=== PATIENT | male | born 1960 | race Caucasian/White ===

== ENCOUNTER 2019-09-14 15:22 | Observation (INO) | payer OTHER ==
[2019-09-13] MEDS: KCL 20MEQ/.9 SOD CHL 1,000 ML IV ONE (23:30)
[~2019-09-14] VITALS: Ht 172.7 cm; Wt 78.9 kg
[~2019-09-14 15:22] MED LIST: CIPROFLOXACIN 500 MG; LEVOTHYROXINE25 MCG; [UNRECOGNIZED DRUG - OTHER]; tadalafil
--- NOTE | 2019-09-14 16:25 | Emergency Department Note ---
History of Present Illnes History of Present Illness Chief Complaint: Abdominal Complaints History of Present Illness This is a 58 year old male, with a history of hypothyroidism, who presents with a one-week history of left lower abdominal pressure and pain, that he felt might be secondary to diverticulitis. He's had a similar pain intermittently over the past 4-5 months, but he has never been formally diagnosed with diverticulitis. Patient states that he changed to a soft diet over the weekend, and this pain mostly resolved. 4 days ago, patient began to have some pain in the left low back/flank. It is sharp, stabbing, and intermittent. The Pain has become constant over the last 24-48 hours. Patient states that he has had a history of a kidney stones approximately 25 years ago, and he recalls a similar pain at that time. He denies any hematuria or dysuria, but he has had frequency and urgency. He has taken ibuprofen for the pain with mild relief, but not resolution of the pain. Patient states that he had a normal bowel movement earlier today. He has had no diarrhea, hematochezia, or melena. He denies any fever, chills, nausea, vomiting, or upper respiratory symptoms. He denies any known exposure to anyone with Covid 19 infection. - Pt states that he has had a colonoscopy @ 3-4 years ago, where several polyps were removed, but diverticulosis was not seen. Historian: Patient Arrival Mode: Car Additional Treatment [employer]: none Specification Manager Required: No Onset (how long ago): week(s) (1) Location: LLQ and left flank Quality: sharp, stabbing Radiation: Reports back, Reports abdomen Severity: severe Onset quality: gradual Duration (how long): week(s) (1) Timing of current episode: constant Progression: worsening Chronicity: recurrent Context: Denies recent illness, Denies recent travel Relieving factors: none Exacerbating factors: none Associated symptoms: Reports denies other symptoms; Denies chest pain, Denies cough, Denies fever/chills, Denies nausea/vomiting, Denies shortness of breath, Denies weakness Treatments prior to arrival: NSAID Risk factors: Previous history of kidney stones; Past Medical/Family History Physician Review I have reviewed the patient's past medical and family history. Any updates have been documented here. Past Medical History Recent Fever: No Clinical Suspicion of Infectio: No New/Unexplained Change in Ment: No Past Medical History: Hypothyroidism, Kidney Stones (x 1 episode, and passed without intervention; ) Past Surgical History: Cholecysctectomy, Hernia Repair Social History Smoking Cessation: Never Smoker Alcohol Use: None Any Illegal Drug Use: No TB Exposure/Symptoms: No Physically hurt or threatened: No Family History Family history of heart diseas: No Other Any Pre-Existing Lines (PICC,: No Is patient up to date on immun: Yes Review of Systems Review of Systems Constitutional: Denies chills, Denies fever EENTM: Reports no symptoms Cardiovascular: Denies chest pain, Denies palpitations Respiratory: Reports no symptoms Gastrointestinal: Reports abdominal pain; Denies constipation, Denies diarrhea, Denies nausea, Denies vomiting Genitourinary: Reports frequency, Reports other (urgency); Denies hematuria Musculoskeletal: Reports back pain; Denies muscle pain, Denies muscle stiffness Integumentary: Denies change in color, Denies rash Neurological: Reports no symptoms Psychological: Reports no symptoms Endocrine: Reports no symptoms Review of other systems: All other systems negative Physical Exam Related Data Allergies: Coded Allergies: azithromycin (Verified Allergy, Intermediate, hives/rash, 09/14/19) Vital signs reviewed: Yes Physical Exam CONSTITUTIONAL Constitutional: Present well-developed, Present well-nourished; Absent distressed, Absent ill appearing HENT HENT: Present normocephalic, Present atraumatic, Present oropharynx clear/moist, Present nose normal; Absent nasal discharge, Absent nasal congestion, Absent rhinorrhea HENT L/R: Present left ext ear normal, Present right ext ear normal EYES Eyes: Reports PERRL, Reports conjunctivae normal NECK Neck: Present ROM normal, Present supple PULMONARY Pulmonary: Present effort normal, Present breath sounds normal; Absent respiratory distress, Absent chest tenderness CARDIOVASCULAR Cardiovascular: Present regular rhythm, Present heart sounds normal, Present capillary refill normal, Present normal rate GASTROINTESTINAL Abdominal: Present soft, Present bowel sounds normal, Present tender (mild supraprubic ttp; ), Present left CVA tenderness; Absent distension, Absent guarding, Absent rebound GENITOURINARY Genitourinary: Present exam deferred SKIN Skin: Present warm, Present dry; Absent rash MUSCULOSKELETAL Musculoskeletal: Absent ROM normal NEUROLOGICAL Neurological: Present alert, Present oriented x 3; Absent cranial nerve deficit PSYCHOLOGICAL Psychological: Present mood/affect normal Results Laboratory Laboratory CMP - nl except for Alk phos = 133, ALT = 54; CBC - normal; . UA - ket = 15 mg/dl, blo - large, pro = 30 mg/dl; Lab results reviewed: Yes Imaging Imaging results reviewed: Yes Diagnostics Tests Diagnostic test(s) reviewed: Yes Assessment & Plan Medical Decision Making MDM - Pt to be admitted for managment of obstructive left kidney stone, pain control, IVF and IV antibiotics for diverticulitis. - Pt to f/u with GI for further evaluation of pancreatic cystic mass. Reassessment Reassessment time: 17:35 Reassessment - Pain was initially relieved by Toradol, but is now returning. He is requestin g something else for pain. His will come and pick him up. Will try Morphine 4 mg IV and Zofran 4mg IV. - Continue to await CT scan results. 18:30- Discussed results of CT scan with patient, at length. He does have an obstructing left distal kidney stone, probably 5 mm, with mild proximal hydronephrosis. There is also some fat stranding around the sigmoid colon which could possibly be diverticulitis, which is the symptoms he was initially describing. Also of note, a cystic mass in the pancreatic tail is also noted, and specific follow-up instructions were outlined. Encouraged patient to follow up with his GI doctor, who performs colonoscopy, to make a plan for further evaluation of the pancreatic mass. Patient was provided with a CD, containing the CT images, as well as the report. Patient states he will follow-up, once he has recovered from this acute illness. His current pain does not seem to be all related to the cystic mass in the tail of the pancreas. 18:55 - Case discussed with Urology, Dr. Carrera, he stated that he would be happy to consult on patient following admission to the hospital. Patient be admitted for pain control, IV fluids, and IV antibiotics, for possible diverticulitis. Patient is agreeable to admission, and a bed is available [facility]. 19:00 - case discussed with Dr. Cheng, who is construction job cost estimator for admissions. He is agreeable to admitting patient, for further management of an obstructive left kidney stone, left hydronephrosis and sigmoid diverticulitis. Await bed assignment. 20:45 - EMS is here to transport patient to [facility]. He remains medically stable for transport. - Assessment & Plan Final Impression: (1) Left nephrolithiasis (2) Hydronephrosis (3) Diverticulitis of sigmoid colon (4) Cystic mass of pancreas (5) Hypothyroidism Depart Disposition: ADMITTED (to [facility]) Home Meds Reported Medications Levothyroxine Sodium (LEVOTHYROXINE SODIUM) 25 Mcg Tablet, 1-2XD 02/09/13 [ciprofloxin 500 mg] No Conflict Check, 1-2XD 02/09/13 [tadalafil] No Conflict Check 02/09/13 SARAH DUEÑAS MD Sep 14, 2019 16:25
[2019-09-14] MEDS ORDERED: KETOROLAC TROMETHAMINE 30 MG/ML VIAL IV STA (16:26)
[2019-09-14] MEDS ORDERED: KETOROLAC TROMETHAMINE 30 MG/ML VIAL ONE (16:37)
[2019-09-14] MEDS ORDERED: SODIUM CHLORIDE 0.9% 1000ML 1,000 ML ONE (16:37)
[2019-09-14] MEDS ORDERED: SODIUM CHLORIDE 0.9% 1000ML 1,000 ML IV SCH ×2 (16:45→23:15)
[2019-09-14] MEDS ORDERED: ONDANSETRON HCL INJ 2MG/ML 2ML 2 MG/ML VIAL IV STA (17:32)
[2019-09-14] MEDS ORDERED: MORPHINE SULFATE INJ 4 MG/ML INJ 1ML IV STA (17:32)
[2019-09-14] MEDS ORDERED: MORPHINE SULFATE INJ 4 MG/ML INJ 1ML ONE (17:40)
--- NOTE | 2019-09-14 18:33 | Diagnostic Imaging Report ---
ADDENDUM #1 There is diverticulosis and short segment mucosal thickening of the sigmoid colon with peripheral fat stranding compatible with diverticulitis. An underlying mass cannot be excluded. Consider referral to gastrointestinal medicine to determine need for colonoscopy after acute disease. Signed by: Osman Boykin MD on 09/14/2019 6:34 PM ADDENDUM #2 Obstructive left ureteral stone measures 5 mm. Nonobstructive stone in the upper pole of the right kidney measures 3 mm. Signed by: Osman Boykin MD on 09/14/2019 6:40 PM ORIGINAL REPORT EXAM: CT Abdomen WITHOUT contrast INDICATION: Left lower quadrant and left flank pain. COMPARISON: None. TECHNIQUE: Abdomen was scanned utilizing a multidetector helical scanner from the lung base to the iliac crest without administration of IV contrast. Absence of intravenous contrast decreases sensitivity for detection of focal lesions and vascular pathology. Coronal and sagittal reformations were obtained. Routine protocol was performed. IV CONTRAST: None ORAL CONTRAST: Water COMPLICATIONS: None RADIATION DOSE: Total DLP: 746.21 mGy*cm Estimated effective dose: (DLP x 0.015 x size factor) mSv CTDIvol has been reviewed. It is below the limits set by the Radiation Protocol Committee (RPC). Dose modulation, iterative reconstruction, and/or weight based adjustment of the mA/kV was utilized to reduce the radiation dose to as low as reasonably achievable. FINDINGS: LINES and TUBES: None. LOWER THORAX: Unremarkable HEPATOBILIARY: No focal hepatic lesions. No biliary ductal dilation. GALLBLADDER: Status post cholecystectomy. SPLEEN: No splenomegaly. PANCREAS: There is a 2.7 x 2.7 cm cyst (11 HU) the tail of the pancreas. The pancreas is otherwise unremarkable with no ductal dilatation. ADRENALS: No adrenal nodules KIDNEYS/URETERS: There is an obstructive stone in the distal left ureter (series 3 image 155) with mild proximal hydronephrosis. There is a nonobstructive stone in the upper pole of the right kidney. No evidence of obstructive uropathy on the right. GI TRACT: There is diverticulosis coli and short segment of mucosal thickening with pericolonic fat stranding of the sigmoid colon (series 3 images 133-144). The remainder of the large bowel, small bowel and stomach are unremarkable. LYMPH NODES: No lymphadenopathy. VESSELS: Unremarkable. PERITONEUM / RETROPERITONEUM: No free air or fluid. BONES: Unremarkable. SOFT TISSUES: Unremarkable. IMPRESSION: 1. Obstructive stone in the distal left ureter with mild proximal hydronephrosis. 2. Nonobstructing stone in the right kidney. 3. Cystic mass in the pancreatic tail which measures 2.7 x 2.7 cm and likely represents an IPMN. If patient is low risk for pancreatic cancer, recommend repeat imaging every 6 months x 4. If stable after 2 years, recommend reimaging every 1 year x2 and then every 2 years x3, for total of 10 years. However if there is interval change in size after 2 years, recommend endoscopic ultrasound, FNA and surgical consultation. If the patient is high risk for pancreatic cancer, recommend immediate surgical consultation, endoscopic ultrasound and FNA. Please see below for evidence-based source of these recommendations. Reji Love MD, MPH, Danny Jaime MD, Stephanie Cash MD et al. Management of Incidental Pancreatic Cysts: A White Paper of the ACR Incidental Findings Committee 2017. JACR 2017; [id number] Signed by: Osman Boykin MD on 09/14/2019 6:29 PM
--- NOTE | 2019-09-14 18:54 | NUR ---
Report to CAYDEN Martins
[2019-09-14] MEDS ORDERED: HYDROMORPHONE 1MG/1ML INJ IV PRN (19:30)
[2019-09-14] MEDS ORDERED: ONDANSETRON HCL INJ 2MG/ML 2ML 2 MG/ML VIAL IV PRN ×2 (19:30→23:15)
[2019-09-14] MEDS ORDERED: SODIUM CHLORIDE FLUSH 10 ML SYR INJ PRN ×2 (19:30→23:15)
[2019-09-14] MEDS ORDERED: KCL 20MEQ/.9 SOD CHL 1,000 ML IV ONE (19:30)
[2019-09-14] MEDS ORDERED: KETOROLAC TROMETHAMINE 30 MG/ML VIAL IV PRN (19:45)
--- NOTE | 2019-09-14 19:45 | NUR ---
[facility] CALLED FOR REPORT 45MIN ETA
[2019-09-14] MEDS ORDERED: METRONIDAZOLE 500MG/NS 100ML 100 ML IV SCH (20:00)
--- NOTE | 2019-09-14 20:00 | NUR ---
CALLED AND INFORMED NURSE THAT COVID TEST WAS NOT DONE HERE AND THAT SHE NEEDED TO SWAB PATIENT WHEN HE ARRIVED TO ROOM 100.
[2019-09-14] MEDS ORDERED: METRONIDAZOLE 500MG/NS 100ML 100 ML IV ONE (20:21)
[2019-09-14] MEDS ORDERED: TAMSULOSIN HCL 0.4 MG CAP PO SCH (21:00)
[2019-09-14] MEDS ORDERED: CIPROFLOXACIN 400 MG/D5W 200ML 200 ML IV SCH (21:00)
--- NOTE | 2019-09-14 21:05 | NUR ---
[facility]CE[facility] AT THIS TIME VIA EMS. PATIENT AMBULATED TO BED AND TOILET, STEADY GAIT NOTED. PATIENT A&OX4. NO PAIN REPORTED AT THIS TIME. LUNG SOUNDS CLEAR. BOWEL SOUNDS ACTIVE, LAST BM TODAY. PEDAL PULSES PALPABLE. NO EDEMA NOTED. L AC 18G IV ASYMPTOMATIC, INTACT, AND PATENT. DISCUSSED PLAN OF CARE, NEED TO STRAIN URINE, AND NPO AFTER MIDNIGHT. PATIENT VERBALIZED UNDERSTANDING. BED LOCKED IN LOWEST POSITION, SIDE RAILS UPX2, CALL LIGHT IN REACH.
[2019-09-14 21:09] VITALS: BP 118/75
[2019-09-14] MEDS ORDERED: ACETAMINOPHEN 325 MG TAB PO PRN (22:15)
[2019-09-14] MEDS ORDERED: MORPHINE SULFATE INJ 4 MG/ML INJ 1ML IV PRN ×2 (22:15→23:15)
[2019-09-14 23:06] VITALS: BP 118/75
[2019-09-14] MEDS: KCL 20MEQ/.9 SOD CHL 1,000 ML IV ONE (23:30)
[2019-09-15] VITALS: BP 97/68
[2019-09-15 01:25] VITALS: BP 97/68
[2019-09-15 04:00] VITALS: BP 98/62
[2019-09-15] MEDS ORDERED: METRONIDAZOLE 500MG/NS 100ML 100 ML IV SCH (04:00)
[2019-09-15] MEDS ORDERED: SODIUM CHLORIDE 0.9% 1000ML 1,000 ML IV SCH (05:00)
[2019-09-15 07:42] VITALS: BP 98/60
[2019-09-15 08:49] VITALS: BP 98/60
--- NOTE | 2019-09-15 08:57 | Consultation ---
DATE OF CONSULTATION: 09/15/2019 Urology Consultation Consultation is called by the emergency room. CHIEF COMPLAINT/REASON FOR CONSULTATION: Kidney stones, ureteral stone. HISTORY OF PRESENT ILLNESS: Francisco Perrin is a 58-year-old male with a prior history of kidney stones admitted, experiencing acute sharp severe left-sided flank pain rated in the anterior abdomen. He has had a prior kidney stone 26 years ago. Denied dysuria. Denied gross hematuria. PAST MEDICAL HISTORY: Remote gross hematuria, passed kidney stones. MEDICATIONS: Please see MAR. ALLERGIES: AZITHROMYCIN. SOCIAL HISTORY: No smoking or drinking. FAMILY HISTORY: Denied urologic stones or malignancies. REVIEW OF SYSTEMS: Noncontributory other than problems mentioned above for 12-organ systems. PHYSICAL EXAMINATION: GENERAL: Middle-aged male in no distress currently. VITAL SIGNS: Temperature 97.9, pulse 52, respirations 18, and blood pressure 97/68. HEENT: Sclerae anicteric. NECK: Supple. BACK: Without costovertebral bilaterally. ABDOMEN: Soft, nontender, nondistended. No palpable mass. No palpable hernias. No palpable adenopathy. : Normal male external genitalia. EXTREMITIES: No edema. NEURO: Moves all 4 extremities. PSYCH: Alert and mood appropriate. SKIN: Intact. Normal color. PERTINENT LABORATORY DATA: Sodium 136, potassium 4.6, chloride 104, bicarb 27, BUN 14, creatinine 0.79, glucose 102, calcium of 8.9. White blood cell count 6.4 thousand, hemoglobin 15.8, hematocrit 48.7, platelet count 212,000. Urinalysis from an outside ER, positive blood. IMPRESSION: 1. Right renal calculus. 2. Left ureteral calculus. 3. Left hydronephrosis. 4. Hematuria. 5. Renal colic. PLAN: The patient has been admitted at an outside emergency room. Has not received any narcotic pain medicine overnight. We will obtain a KUB to see if this patient has passed left ureteral stone and safely discharged the patient to home. Thank you for allowing me to participate in the care of your patient. We will be happy to follow along with you. MD SELENA Laguna/MODBimal /[id number]
[2019-09-15] MEDS ORDERED: CIPROFLOXACIN 400 MG/D5W 200ML 200 ML IV SCH (09:00)
--- NOTE | 2019-09-15 09:05 | Diagnostic Imaging Report ---
Exam: KUB - 2 views Indication: Urinary calculus Comparison: CT abdomen and pelvis of 09/14/2019 Findings: 4 mm calcific density in the left pelvis likely corresponds with the distal ureteral calculus seen on the CT of 09/14/2019. 3 mm right upper pole renal calculus. No additional radiographically apparent urinary calculi. Surgical clip in the pelvis. Nonobstructive bowel gas pattern. No free air. No acute osseous injury. Impression: 4 mm left distal ureteral calculus. 3 mm right upper pole renal calculus. Signed by: Joyce Mullen MD on 09/15/2019 9:01 AM
[2019-09-15 11:15] VITALS: BP 104/67
[2019-09-15 12:43] LABS: BASOPHILS % 0.4 % (0.0-1.0); EOSINOPHILS # (AUTO) 0.2 (0.0-0.4); EOSINOPHILS % 4.2 % (0.0-6.0); HEMATOCRIT 42.5 % (38.2-49.6); LYMPHOCYTES % 17.7 % (18.0-39.1); MEAN CORPUSCULAR HEMOGLOBIN 28.6 pg (28-32); MEAN CORPUSCULAR HGB CONC 32.9 g/dL (31-35); MEAN CORPUSCULAR VOLUME 86.7 fL (81-99); MONOCYTES # (AUTO) 0.5 (0.2-0.8); MONOCYTES % 8.2 % (4.4-11.3); NEUTROPHILS % 69.3 % (38.7-80.0); PLATELET COUNT 227 x10e3/uL (140-360)
[2019-09-15 12:58] LABS: ANION GAP 8.3 mmol/L (8-16); BLOOD UREA NITROGEN 11 mg/dL (7-26); BUN/CREATININE RATIO 15 (6-25); CALCIUM 8.1 mg/dL (8.4-10.2); CARBON DIOXIDE 24 mmol/L (22-29); CHLORIDE 112 mmol/L (98-107); CREATININE, SERUM 0.73 mg/dL (0.72-1.25); EST GLOMERULAR FILTRATION RATE > 60 ML/MIN (60-); GLUCOSE 103 mg/dL (74-118); POTASSIUM 4.3 mmol/L (3.5-5.1); SODIUM 140 mmol/L (136-145)
[2019-09-15] MEDS ORDERED: TYLENOL WITH C1 EACH PO (15:00)
[2019-09-15] MEDS ORDERED: CIPRO500 MG PO (15:01)
[2019-09-15] MEDS ORDERED: FLAGYL250 MG PO (15:01)
[2019-09-15] MEDS ORDERED: FLOMAX0.4 MG PO (15:02)
--- NOTE | 2019-09-15 16:40 | NUR ---
Patient discharged home, prescription given, patient aware about f/up appointment, denies any pain this time, IV removed with tip intact, no ss of infiltration. family here to pick patient
--- NOTE | 2019-09-15 19:51 | History and Physical ---
CHIEF COMPLAINT: Left flank pain. HISTORY OF PRESENT ILLNESS: This is a 58-year-old male, has a history of nephrolithiasis. He was at the [facility] yesterday after he was complaining of having left-sided flank pain. Imaging studies there shows evidence of nephrolithiasis concerning for underlying obstruction as well as some mild diverticulitis. The patient was then brought into the hospital for further management and evaluation by Urology. The patient was started on IV antibiotic therapy and pain control. The patient was evaluated at bedside. He is currently doing well with no complaints at this time. REVIEW OF SYSTEMS: Pertinent positives left-sided flank pain, left lower quadrant abdominal pain. The rest of 14-point review of systems have been reviewed with the patient and are negative. ALLERGIES: AZITHROMYCIN. HOME MEDICATIONS: Levothyroxine, . PAST MEDICAL HISTORY: He has a history of hypothyroidism. PAST SURGICAL HISTORY: Reports none. FAMILY HISTORY: Hypertension and diabetes. SOCIAL HISTORY: No drugs, no alcohol, does not smoke. Good social support. PHYSICAL EXAMINATION: VITAL SIGNS: Temperature is 97.7, pulse 72, respiratory rate 16, blood pressure 104/67, pulse oximetry 98% on room air. GENERAL: Not in acute distress. Alert and oriented x3. Cooperative on examination. HEENT: Head is normocephalic, atraumatic. Eyes, pupils are equal, round, and reactive to light bilaterally. Extraocular movements are intact bilaterally. Throat, no evidence of erythema or exudates in the posterior pharynx. Has poor dentition. NECK: Supple. Good range of motion. PULMONARY: Clear to auscultation bilaterally. No wheezing, rales, or rhonchi. No crackles appreciated. CARDIOVASCULAR: Positive S1, S2. No murmurs, rubs, or gallops appreciated. ABDOMEN: Soft, nondistended, nontender to palpation. Bowel sounds present. MUSCULOSKELETAL: Strength is 5/5 throughout. On muscle strength examination, no weakness appreciated. NEUROLOGICAL: Cranial nerves II through XII grossly intact. No evidence of neurological deficits on exam. SKIN: Intact. Warm to touch. Good capillary refill. PSYCHIATRIC: Normal affect and mood. EXTREMITIES: No edema. Good range of motion throughout. LABORATORY FINDINGS: Show white count 5.7, hemoglobin 14, hematocrit 42, platelets of 227. Chemistries noted. Coronavirus pending. IMAGING STUDIES: CT of abdomen and pelvis showed obstructive stone in the distal left ureter and mild proximal hydronephrosis. Nonobstructing stone in the right kidney. There is a cystic mass in the pancreatic tail which measures 2.7 x 2.7 cm, likely . He does need a repeat imaging in the future. He does follow up with a GI specialist in relation to this and he is well aware of this particular issue. Abdominal x-ray, 4-mm left distal ureteral calculus. The 3-mm right upper pole renal calculus. IMPRESSION: 1. Mild sigmoid diverticulitis. 2. Left ureteral calculus with mild left hydronephrosis. 3. Renal colic. 4. Right renal calculus. PLAN: At this time, continue with IV antibiotics, pain control. Urology recommendations noted. The patient can be discharged home. In fact, he is doing very well. He has very minimal pain. The patient will be discharged on pain control as well as antibiotics for his underlying sigmoid diverticulitis. He will follow up with Urology as an outpatient. Otherwise, he is doing very well with no other issues. MD NEGRO Burden/KAMI /[id number]
[2019-09-15] MEDS ORDERED: TAMSULOSIN HCL 0.4 MG CAP PO SCH (21:00)
--- NOTE | 2019-09-15 21:06 | Discharge Summary ---
FINAL DISCHARGE DIAGNOSES: 1. Mild sigmoid diverticulitis. 2. Mild hydronephrosis with left ureteral calculus. 3. Right renal calculus. CONSULTANTS: Urology. VITAL SIGNS: Temperature is 97.7, pulse 72, respiratory rate is 16, blood pressure 104/67, pulse ox 98% on room air. LABORATORY FINDINGS: Show white count 5.7, hemoglobin 14, hematocrit is 42, and platelets of 227. Chemistry; sodium 140, potassium 4.3, chloride 112, bicarb 24, anion gap of 8.3, BUN is 11, creatinine is 0.73, glucose 103, calcium is 8.1. SEROLOGY: Coronavirus is pending. IMAGING STUDIES: CT abdomen and pelvis shows obstructive stone in the distal left ureter and mild proximal hydronephrosis. Nonobstructive stone in the right kidney. Cystic mass in the pancreatic tail. As noted, he needs to follow up as an outpatient. Abdominal x-ray still shows impression of 4 mm left distal ureteral calculus, 3 mm right upper pole renal calculus. HOSPITAL COURSE: This is a 58-year-old male, came in from a [facility] with complaints of underlying left flank pain with CT imaging concerning for underlying obstructed stone in the distal left ureter and mild proximal hydronephrosis, prompting further evaluation and management here at [facility]. The patient was brought in and Urology was consulted. The patient maintained on IV antibiotic therapy. The patient did not require any pain control while here in the hospital stay. Per Urology since the patient is doing well, he has no pain, he can be discharged to home with followup in his office in the next 2 to 3 weeks. The patient during my interview, he had no complaints of any flank pain and he was comfortable going home. He was discharged on oral antibiotics for underlying sigmoid diverticulitis for that as well. In relation to his pancreatic cystic mass that were seen, he is well aware of this and he has been following up with a GI specialist as an outpatient. I will reiterate to him that he needs to follow up very closely with them with surveillance and he verbalized understanding. Otherwise, the patient is doing well, was cleared for discharge by all consultants. He was stable prior to being discharge to home. On the day of discharge, vital signs were stable, labs reviewed and stable. The patient is seen and evaluated and examined thoroughly on the day of discharge with no other complaints. The patient verbalized understanding and agrees to plan of care to follow up as an outpatient with primary care physician in 1 week and urologist in 2 to 3 weeks' time. MEDICATIONS: See med reconciliation form. DISPOSITION: Home. CONDITION: Stable. DIET: Heart healthy. In the event of any worsening symptoms, the patient was advised to come back to the ED for further evaluation. Discharge summary took greater than 35 minutes. MD NEGRO Burden/MODL /[id number]
== END 2019-09-15 16:39 | disposition home or self-care (01) ==
LOC: FSED 16:10 → MED/SURG 19:24 → INTOOBSV 19:24 → FSED 20:45
PROVIDERS: ADMIT Internal Medicine; ATTEND Internal Medicine
DX: K57.32 Diverticulitis of large intestine without perforation or abscess without bleeding (principal); N13.2 Hydronephrosis with renal and ureteral calculous obstruction; K86.2 Cyst of pancreas; Z11.59 Encounter for screening for other viral diseases; E03.9 Hypothyroidism, unspecified
CPT/HCPCS: 36415; 74018; 74176; 80048; 80053; 81003; 85025 ×2; 96374; 96375; 99284; G0378 ×2; J0744; J1170; J1885; J2270; J2405; J7030 ×2; U0002